=== PATIENT | female | born 1965 | race Caucasian/White ===

== ENCOUNTER 2017-04-09 15:25 | Emergency (ER) | payer OTHER ==
[~2017-04-09] VITALS: Ht 160 cm; Wt 89.8 kg
[2017-04-09] MEDS ORDERED: IPRATROPIUM BROMIDE 0.5 MG/2.5 ML NEBU NEB ONE (16:00)
[2017-04-09] MEDS ORDERED: ALBUTEROL SULFATE 2.5 MG/3 ML NEBU NEB ONE (16:00)
[2017-04-09] MEDS ORDERED: ALBUTEROL SULFATE 2.5 MG/ 0.5 ML NEBU ONE (16:04)
[2017-04-09] MEDS ORDERED: IPRATROPIUM BROMIDE 0.5 MG/2.5 ML NEBU ONE (16:04)
[2017-04-09 16:14] LABS: BASOPHILS # (AUTO) 0.2 K/uL (0.0-8.0); EOSINOPHILS % (AUTO) 0.3 % (0.0-7.0); HEMATOCRIT 43.7 % (37-47); HEMOGLOBIN 14.5 G/DL (12.0-16.0); LYMPHOCYTES # (AUTO) 1.7 K/UL (0.8-4.8); LYMPHOCYTES % (AUTO) 17.4 % (20.5-51.5); MEAN CORPUSCULAR HEMOGLOBIN 30.4 UUG (27.0-31.0); MEAN CORPUSCULAR HGB CONC 33 g/dL (32.0-37.0); MEAN CORPUSCULAR VOLUME 91.7 FL (81.0-99.0); MONOCYTES # (AUTO) 0.7 K/UL (0.1-1.30); MONOCYTES % (AUTO) 7.4 % (0.0-11.0); NEUTROPHILS # (AUTO) 7.3 K/UL (1.8-8.9); NEUTROPHILS % (AUTO) 72.9 % (38.5-71.5); PLATELET COUNT (AUTO) 185 K/UL (150-450); RED BLOOD CELL COUNT(AUTO) 4.77 MIL/UL (4.2-5.4); WHITE BLOOD COUNT (AUTO) 9.9 K/UL (4.0-11.2)
[2017-04-09 16:19] LABS: CREATININE 0.8 mg/dL (0.6-1.3); POTASSIUM 3.3 mmol/L (3.5-5.1)
[2017-04-09 16:55] VITALS: BP 112/77
== END 2017-04-09 16:55 | disposition home or self-care (01) ==
LOC: ER 15:25
DX: J18.9 Pneumonia, unspecified organism (principal); K21.9 Gastro-esophageal reflux disease without esophagitis; Z88.0 Allergy status to penicillin
CPT/HCPCS: 36415; 71010; 80048; 84484; 84703; 85025; 93005; 94640; 99285; A4663; J3590; 70030-TC

== ENCOUNTER 2017-11-28 10:45 | Emergency (ER) | payer OTHER ==
[~2017-11-28] VITALS: Ht 160 cm; Wt 89.8 kg
--- NOTE | 2017-11-28 10:58 | NUR ---
Patient discharged to home in stable conditon. Written and verbal after care instructions given. Patient verbalizes understanding of instructions.
== END 2017-11-28 10:59 | disposition home or self-care (01) ==
LOC: ER 10:45
DX: J40 Bronchitis, not specified as acute or chronic (principal); K21.9 Gastro-esophageal reflux disease without esophagitis; Z88.0 Allergy status to penicillin
CPT/HCPCS: A4663

== ENCOUNTER 2018-08-09 19:01 | Emergency (ER) | END 2018-08-09 20:27 | disposition home or self-care (01) | DX: K80.20 Calculus of gallbladder without cholecystitis without obstruction (principal); Z88.0 Allergy status to penicillin; Z88.8 Allergy status to other drugs, medicaments and biological substances ==

== ENCOUNTER 2021-05-18 14:26 | Emergency (ER) | payer BC, OTHER ==
[~2021-05-18] VITALS: Ht 157.5 cm; Wt 104.3 kg
[2021-05-18 15:13] LABS: HEMATOCRIT 45.3 % (31.2-41.9); MEAN CORPUSCULAR HEMOGLOBIN 31.1 uug (24.7-32.8); MEAN CORPUSCULAR VOLUME 92.1 fL (75.5-95.3); PLATELET COUNT (AUTO) 234 K/uL (179-408)
[2021-05-18] MEDS: IV NORMAL SALINE 1000 ML BAG IV ONE (15:13)
[2021-05-18] MEDS: MECLIZINE HCL 25 MG TABLET PO ONE (15:13)
[2021-05-18] MEDS ORDERED: MECLIZINE HCL 25 MG TABLET ONE (15:15)
[2021-05-18 15:22] LABS: CREATININE 0.6 mg/dL (0.6-1.3); POTASSIUM 3.6 mmol/L (3.5-5.1)
[2021-05-18 15:28] LABS: BILIRUBIN,DIRECT 0.1 mg/dL (0.0-0.2); BILIRUBIN,TOTAL 0.4 mg/dL (0.2-1.0)
--- NOTE | 2021-05-18 16:21 | NUR ---
Pt states dizziness is better, able to walk w/ steady gait.
[2021-05-18] MEDS ORDERED: MECL-159 PO (16:25)
[2021-05-18 16:34] VITALS: BP 146/78
--- NOTE | 2021-05-18 16:34 | NUR ---
IV removed. Catheter intact and site benign. Pressure and 4x4 gauze applied to site. No bleeding noted.
--- NOTE | 2021-05-18 16:35 | NUR ---
Patient discharged to home in stable condition. Written and verbal after care instructions given. Patient verbalizes understanding of instructions. Stressed follow up or return to ER for worsening s/s. Pt walked out of ER w/ steady gait.
== END 2021-05-18 16:35 | disposition home or self-care (01) ==
LOC: ER 14:26
DX: R42 Dizziness and giddiness (principal); Z87.01 Personal history of pneumonia (recurrent); Z88.0 Allergy status to penicillin; Z88.8 Allergy status to other drugs, medicaments and biological substances; I10 Essential (primary) hypertension; E66.9 Obesity, unspecified; Z68.41 Body mass index [BMI] 40.0-44.9, adult; K21.9 Gastro-esophageal reflux disease without esophagitis; Z87.19 Personal history of other diseases of the digestive system
CPT/HCPCS: 36415; 70030-TC; 70450; 85025; 85730; 93005; A4663; J7030; J8597

== ENCOUNTER 2022-12-01 01:15 | Emergency (ER) | payer BC ==
[~2022-12-01] VITALS: Ht 157.5 cm; Wt 99.8 kg
[~2022-12-01 01:15] MED LIST: MECL-159 PO
[2022-12-01] MEDS ORDERED: LOSA25TA27 PO (01:29)
--- NOTE | 2022-12-01 01:34 | NUR ---
Dr. Morales at bedside. MSE in progress.
[2022-12-01] MEDS ORDERED: AMOXICILLIN-CLAVUL 875-125MG TABLET PO ONE (01:45)
[2022-12-01] MEDS ORDERED: HYDROCODONE/APAP 10-325 MG TABLET PO ONE (01:45)
[2022-12-01] MEDS ORDERED: HYDR-3980 PO (01:49)
[2022-12-01] MEDS ORDERED: AMOX-430 PO (01:49)
[2022-12-01] MEDS ORDERED: AMOXICILLIN-CLAVUL 875-125MG TABLET ONE (01:49)
[2022-12-01] MEDS ORDERED: HYDROCODONE/APAP 10-325 MG TABLET ONE (01:50)
--- NOTE | 2022-12-01 01:57 | NUR ---
Patient discharged to home in stable condition. Written and verbal after care instructions given. Patient verbalizes understanding of instructions. Stressed follow up or return to ER for worsening s/s. Pt A/O x4 amulatory w/ steady gait. NAD noted, accompanied by S/O
[2022-12-01 01:59] VITALS: BP 120/89
== END 2022-12-01 01:55 | disposition home or self-care (01) ==
LOC: ER 01:19
DX: H66.91 Otitis media, unspecified, right ear (principal); K21.9 Gastro-esophageal reflux disease without esophagitis; Z88.0 Allergy status to penicillin; Z88.8 Allergy status to other drugs, medicaments and biological substances; Z79.899 Other long term (current) drug therapy
CPT/HCPCS: A4663